=== PATIENT | male | born 1960 | race Caucasian/White ===

== ENCOUNTER 2017-11-14 08:05 | Inpatient (IN) | payer OTHER ==
[~2017-11-14] VITALS: Ht 180.3 cm; Wt 133.8 kg
[~2017-11-14 08:05] MED LIST: EXEN10PE4 SQ; HYT1 PO; LINA5TAB2 PO; PRAV20TA PO; TERB12CR3 TP; TOPXL100 PO; TRAM50TA92 PO; [UNRECOGNIZED DRUG - CODE] PO
[2017-11-14 08:11] VITALS: BP_SYST 139
[2017-11-14] MEDS ORDERED: NACL 0.9% 1,000 ML IV ONE (08:24)
[2017-11-14] MEDS ORDERED: KETOROLAC TROMETHAMINE 30 MG VIAL IVP ONE (08:30)
[2017-11-14 08:57] LABS: CALCIUM 8.8 mg/dL (8.4-11.0); CREATININE 1.49 mg/dL (0.55-1.30); POTASSIUM 3.8 mmol/L (3.5-5.1)
[2017-11-14 09:03] LABS: ALBUMIN 3.8 g/dL (3.4-4.8)
[2017-11-14 09:33] LABS: MONOCYTES # (AUTO) 0.4 K/uL (0.0-1.0)
[2017-11-14 09:36] LABS: EOSINOPHILS # (AUTO) 0.3 K/uL (0.0-0.4); MEAN CORPUSCULAR HGB CONC 34 % (32-36); NEUTROPHILS # (AUTO) 5.1 K/uL (1.8-7.7)
[2017-11-14 09:42] LABS: BASOPHILS % (AUTO) 0.2 % (0.0-2.0); EOSINOPHILS % (AUTO) 3.9 % (0.0-4.0); HEMOGLOBIN 14.7 g/dL (14.0-18.0); LYMPHOCYTES # (AUTO) 1.1 K/uL (1.0-5.5); LYMPHOCYTES % (AUTO) 16.4 % (20.5-51.5); MEAN CORPUSCULAR HEMOGLOBIN 28 pg (27-31); MEAN CORPUSCULAR VOLUME 83 fL (79.0-98.0); MONOCYTES % (AUTO) 6.1 % (1.7-9.3); NEUTROPHILS % (AUTO) 73.4 % (40.0-70.0); PLATELET COUNT (AUTO) 154 K/uL (130-430); RED BLOOD CELL COUNT(AUTO) 5.32 MIL/uL (4.2-6.2); RED CELL DISTRIBUTION WIDTH 14.6 % (9.0-15.0); WHITE BLOOD COUNT (AUTO) 6.9 K/uL (4.8-10.8)
[2017-11-14 11:41] VITALS: BP_SYST 145
[2017-11-14 12:00] VITALS: BP_SYST 135
[2017-11-14] MEDS ORDERED: EXENATIDE SQ SCH (13:30)
[2017-11-14] MEDS ORDERED: traMADol HCL HCL 50 MG TABLET (ULTRAM) PO PRN (13:30)
[2017-11-14] MEDS ORDERED: DEXTROSE 50% JECT 50 ML DISP.SYRIN IVP PRN ×2 (13:45)
[2017-11-14] MEDS ORDERED: LORazepam 2 MG/ML VIAL IVP PRN (13:45)
[2017-11-14] MEDS ORDERED: ONDANSETRON HCL 4 MG/2 ML VIAL IVP PRN (13:45)
[2017-11-14] MEDS ORDERED: MORPHINE 2 MG/ML INJ. SYRINGE IVP PRN (13:45)
[2017-11-14] MEDS: MORPHINE 4 MG/ML INJ. SYRINGE IVP PRN (14:37)
[2017-11-14] MEDS: D5/0.45 NS 1,000 ML IV SCH ×2 (14:38→22:38)
[2017-11-14 16:00] VITALS: BP_SYST 135
[2017-11-14 20:00] VITALS: BP_SYST 135
[2017-11-14] MEDS: TERBINAFINE HCL 1%, 24 GM antifungal CREAM TP SCH (22:39)
[2017-11-14] MEDS: TERAZOSIN HCL 1 MG CAPSULE (HYTRIN) PO SCH (22:40)
[2017-11-15 00:27] VITALS: BP_SYST 122; BP_SYST 151
[2017-11-15 03:39] LABS: BILIRUBIN,URINE 3+ (NEGATIVE); BLOOD, URINE NEGATIVE (NEGATIVE); CLARITY/URINE CLEAR (CLEAR); COLOR,URINE YELLOW (YELLOW); GLUCOSE,URINE 3+ (NEGATIVE); KETONES,URINE TRACE (NEGATIVE); LEUKOCYTE ESTERASE ,URINE NEGATIVE (NEGATIVE); NITRITE, URINE NEGATIVE (NEGATIVE); PH,URINE 5.5 (5.0-8.0); PROTEIN URINE 2+ (NEGATIVE)
[2017-11-15 04:06] LABS: BACTERIA,URINE MODERATE /HPF (None Seen); FINE GRANULAR CASTS,URINE 0-10 /LPF (None Seen); RBC,URINE 0-3 /HPF (0-3); WBC,URINE 0-3 /HPF (0-3)
[2017-11-15 06:43] LABS: BASOPHILS % (AUTO) 0.3 % (0.0-2.0); EOSINOPHILS # (AUTO) 0.3 K/uL (0.0-0.4); EOSINOPHILS % (AUTO) 4.4 % (0.0-4.0); HEMATOCRIT 43.1 % (36-54); HEMOGLOBIN 14.3 g/dL (14.0-18.0); LYMPHOCYTES # (AUTO) 0.9 K/uL (1.0-5.5); LYMPHOCYTES % (AUTO) 16.2 % (20.5-51.5); MEAN CORPUSCULAR HEMOGLOBIN 27 pg (27-31); MEAN CORPUSCULAR HGB CONC 33 % (32-36); MEAN CORPUSCULAR VOLUME 83 fL (79.0-98.0); MONOCYTES # (AUTO) 0.4 K/uL (0.0-1.0); MONOCYTES % (AUTO) 6.4 % (1.7-9.3); NEUTROPHILS # (AUTO) 4.1 K/uL (1.8-7.7); NEUTROPHILS % (AUTO) 72.7 % (40.0-70.0); PLATELET COUNT (AUTO) 143 K/uL (130-430); RED BLOOD CELL COUNT(AUTO) 5.21 MIL/uL (4.2-6.2); RED CELL DISTRIBUTION WIDTH 14.3 % (9.0-15.0); WHITE BLOOD COUNT (AUTO) 5.7 K/uL (4.8-10.8)
[2017-11-15 07:03] LABS: ALBUMIN 3.2 g/dL (3.4-4.8); CALCIUM 8.4 mg/dL (8.4-11.0); CREATININE 1.34 mg/dL (0.55-1.30); PHOSPHORUS 3.5 mg/dL (2.7-4.5); POTASSIUM 3.8 mmol/L (3.5-5.1); TOTAL BILIRUBIN 6.2 mg/dL (0.0-1.0)
[2017-11-15 07:22] LABS: INR 0.9 (0.80-1.20); PROTHROMBIN TIME 9.6 SECS (9.5-12.5)
[2017-11-15] MEDS ORDERED: IOHEXOL 50 ML IV ONE (07:39)
[2017-11-15 08:00] VITALS: BP_SYST 125
[2017-11-15] MEDS ORDERED: INDOMETHACIN 50 MG SUPP.RECT RC ONE (08:00)
[2017-11-15] MEDS ORDERED: NON-FORMULARY MEDICATION (Amlodipine Besylate/Benazepril (Amlodipine-Benazepril 5-40 Mg) 1 PO SCH (09:00)
[2017-11-15] MEDS: TERBINAFINE HCL 1%, 24 GM antifungal CREAM TP SCH ×2 (09:00→20:34)
[2017-11-15] MEDS ORDERED: SUCCINYLCHOLINE CHLORIDE 20 MG/ML(QUELICIN) ONE (09:37)
[2017-11-15] MEDS ORDERED: ONDANSETRON HCL 4 MG/2 ML VIAL ONE ×2 (09:37→10:23)
[2017-11-15] MEDS ORDERED: SEVOFLURANE 15 MIN GAS INH ONE (09:37)
[2017-11-15] MEDS ORDERED: LIDOCAINE 1% 10 MG/ML, 20 ML MDV ONE (09:37)
[2017-11-15] MEDS ORDERED: LR 1,000 ML IV.SOLN IV ONE (09:37)
[2017-11-15] MEDS ORDERED: KETOROLAC TROMETHAMINE 30 MG VIAL ONE (09:37)
[2017-11-15] MEDS ORDERED: DEXAMETHASONE SOD PHOSPHATE 4 MG/ML VIAL ONE (09:37)
[2017-11-15] MEDS ORDERED: fentaNYL CITRATE/PF 100 MCG/2 ML AMP ONE (09:37)
[2017-11-15] MEDS ORDERED: MIDAZOLAM HCL 5 MG/ML VIAL (VERSED) IV ONE (09:37)
[2017-11-15] MEDS ORDERED: ONDANSETRON HCL 4 MG/2 ML VIAL IVP ONE (09:45)
[2017-11-15] MEDS ORDERED: NALOXONE HCL 0.4 MG/ML AMP (NARCAN) IVP ONE (09:45)
[2017-11-15] MEDS ORDERED: HYDROmorphone 1 MG INJ. 1 MG/ML AMPUL IVP PRN (09:45)
[2017-11-15] MEDS ORDERED: MIDAZOLAM HCL 5 MG/5 ML VIAL IVP PRN (09:45)
[2017-11-15] MEDS ORDERED: KETOROLAC TROMETHAMINE 30 MG VIAL IM PRN (09:45)
[2017-11-15] MEDS ORDERED: MEPERIDINE HCL/PF 25 MG/ML DISP.SYRIN IVP PRN (09:45)
[2017-11-15] MEDS ORDERED: fentaNYL CITRATE/PF 100 MCG/2 ML AMP IVP PRN (09:45)
[2017-11-15 10:52] VITALS: BP_SYST 142
[2017-11-15] MEDS: LR 1,000 ML IV SCH (11:00)
[2017-11-15 12:17] LABS: CHLORIDE,URINE RANDOM 59 mmol/L (55-125)
[2017-11-15 12:26] VITALS: BP_SYST 149
[2017-11-15 13:43] LABS: URINE SODIUM, RANDOM 50 mmol/L (40-220)
[2017-11-15] MEDS ORDERED: IOHEXOL 100 ML IV ONE (15:10)
[2017-11-15] MEDS: INSULIN ASPART 100 UNITS/ML, 10 ML VIAL (NovoLOG) SUBCUT PRN ×2 (17:42→20:36)
[2017-11-15] MEDS: amLODIPine BESYLATE 5 MG TABLET PO SCH (18:00)
[2017-11-15] MEDS: BENAZEPRIL HCL 20 MG TABLET (LOTENSIN) PO SCH (18:00)
[2017-11-15] MEDS: METOPROLOL SUCCINATE 50 MG TAB.SR.24H (TOPROL XL) PO SCH (18:01)
[2017-11-15 20:00] VITALS: BP_SYST 142
[2017-11-15] MEDS: TERAZOSIN HCL 1 MG CAPSULE (HYTRIN) PO SCH (20:33)
[2017-11-15] MEDS: SIMVASTATIN 10 MG TABLET PO SCH (20:33)
[2017-11-16 00:14] VITALS: BP_SYST 119
[2017-11-16 08:00] VITALS: BP_SYST 132
[2017-11-16 10:04] LABS: BASOPHILS % (AUTO) 0.3 % (0.0-2.0); EOSINOPHILS # (AUTO) 0.3 K/uL (0.0-0.4); EOSINOPHILS % (AUTO) 3.6 % (0.0-4.0); HEMATOCRIT 38.8 % (36-54); HEMOGLOBIN 13.2 g/dL (14.0-18.0); LYMPHOCYTES # (AUTO) 0.7 K/uL (1.0-5.5); LYMPHOCYTES % (AUTO) 9.3 % (20.5-51.5); MEAN CORPUSCULAR HEMOGLOBIN 28 pg (27-31); MEAN CORPUSCULAR HGB CONC 34 % (32-36); MEAN CORPUSCULAR VOLUME 82 fL (79.0-98.0); MONOCYTES # (AUTO) 0.5 K/uL (0.0-1.0); MONOCYTES % (AUTO) 6.7 % (1.7-9.3); NEUTROPHILS # (AUTO) 5.7 K/uL (1.8-7.7); NEUTROPHILS % (AUTO) 80.1 % (40.0-70.0); PLATELET COUNT (AUTO) 134 K/uL (130-430); RED BLOOD CELL COUNT(AUTO) 4.72 MIL/uL (4.2-6.2); RED CELL DISTRIBUTION WIDTH 14.7 % (9.0-15.0); WHITE BLOOD COUNT (AUTO) 7.2 K/uL (4.8-10.8)
[2017-11-16] MEDS: BENAZEPRIL HCL 20 MG TABLET (LOTENSIN) PO SCH (10:04)
[2017-11-16] MEDS: amLODIPine BESYLATE 5 MG TABLET PO SCH (10:05)
[2017-11-16 10:06] LABS: ALBUMIN 2.9 g/dL (3.4-4.8); CALCIUM 8.1 mg/dL (8.4-11.0); CREATININE 1.26 mg/dL (0.55-1.30); PHOSPHORUS 2.5 mg/dL (2.7-4.5); POTASSIUM 3.8 mmol/L (3.5-5.1); TOTAL BILIRUBIN 1.7 mg/dL (0.0-1.0)
[2017-11-16] MEDS: METOPROLOL SUCCINATE 50 MG TAB.SR.24H (TOPROL XL) PO SCH (10:06)
[2017-11-16] MEDS: TERBINAFINE HCL 1%, 24 GM antifungal CREAM TP SCH ×2 (10:07→21:00)
[2017-11-16] MEDS: LR 1,000 ML IV SCH ×2 (10:07→10:30)
[2017-11-16] MEDS: INSULIN ASPART 100 UNITS/ML, 10 ML VIAL (NovoLOG) SUBCUT PRN ×2 (11:58→21:20)
[2017-11-16 12:25] VITALS: BP_SYST 139
[2017-11-16] MEDS: MORPHINE 4 MG/ML INJ. SYRINGE IVP PRN ×2 (14:48→21:11)
[2017-11-16 16:55] VITALS: BP_SYST 133
[2017-11-16] MEDS ORDERED: NA PHOS 15 MM in NS 250 ML IV ONE (17:00)
[2017-11-16 20:00] VITALS: BP_SYST 141
[2017-11-16] MEDS: TERAZOSIN HCL 1 MG CAPSULE (HYTRIN) PO SCH (20:59)
[2017-11-16] MEDS: SIMVASTATIN 10 MG TABLET PO SCH (20:59)
[2017-11-17] MEDS: LR 1,000 ML IV SCH (00:11)
[2017-11-17 00:33] VITALS: BP_SYST 138
[2017-11-17] MEDS: INSULIN ASPART 100 UNITS/ML, 10 ML VIAL (NovoLOG) SUBCUT PRN ×2 (06:14→12:11)
[2017-11-17 07:30] LABS: EOSINOPHILS # (AUTO) 0.4 K/uL (0.0-0.4); MEAN CORPUSCULAR HEMOGLOBIN 27 pg (27-31); MONOCYTES # (AUTO) 0.5 K/uL (0.0-1.0)
[2017-11-17 08:00] VITALS: BP_SYST 158
[2017-11-17 08:24] LABS: BASOPHILS % (AUTO) 0.4 % (0.0-2.0); EOSINOPHILS % (AUTO) 4.6 % (0.0-4.0); HEMATOCRIT 42.9 % (36-54); HEMOGLOBIN 13.8 g/dL (14.0-18.0); LYMPHOCYTES # (AUTO) 1.1 K/uL (1.0-5.5); LYMPHOCYTES % (AUTO) 13.5 % (20.5-51.5); MEAN CORPUSCULAR HGB CONC 32 % (32-36); MEAN CORPUSCULAR VOLUME 83 fL (79.0-98.0); MONOCYTES % (AUTO) 5.9 % (1.7-9.3); NEUTROPHILS # (AUTO) 6.3 K/uL (1.8-7.7); NEUTROPHILS % (AUTO) 75.6 % (40.0-70.0); PLATELET COUNT (AUTO) 142 K/uL (130-430); RED BLOOD CELL COUNT(AUTO) 5.19 MIL/uL (4.2-6.2); RED CELL DISTRIBUTION WIDTH 15.2 % (9.0-15.0); WHITE BLOOD COUNT (AUTO) 8.3 K/uL (4.8-10.8)
[2017-11-17 08:34] LABS: ALBUMIN 3.1 g/dL (3.4-4.8); CALCIUM 8.3 mg/dL (8.4-11.0); CREATININE 1.08 mg/dL (0.55-1.30); PHOSPHORUS 2.9 mg/dL (2.7-4.5); POTASSIUM 3.8 mmol/L (3.5-5.1); TOTAL BILIRUBIN 1.1 mg/dL (0.0-1.0)
[2017-11-17] MEDS: TERBINAFINE HCL 1%, 24 GM antifungal CREAM TP SCH (09:49)
[2017-11-17] MEDS: METOPROLOL SUCCINATE 50 MG TAB.SR.24H (TOPROL XL) PO SCH (09:50)
[2017-11-17] MEDS: BENAZEPRIL HCL 20 MG TABLET (LOTENSIN) PO SCH (09:50)
[2017-11-17] MEDS: amLODIPine BESYLATE 5 MG TABLET PO SCH (09:51)
[2017-11-17 12:20] VITALS: BP_SYST 148
[2017-11-17 16:54] VITALS: BP_SYST 147
== END 2017-11-17 17:27 | disposition home or self-care (01) | DRG 444 ==
LOC: SED 08:05 → SMU 11:22
PROVIDERS: ADMIT Preventive Medicine Preventive Medicine/Occupational Environmental Medicine; ATTEND Preventive Medicine Preventive Medicine/Occupational Environmental Medicine
PROC: 0F7D8DZ Dilation of Pancreatic Duct with Intraluminal Device, Via Natural or Artificial Opening Endoscopic (ICD-10-PCS; 2017-11-15)
PROC: BF101ZZ Fluoroscopy of Bile Ducts using Low Osmolar Contrast (ICD-10-PCS; 2017-11-15)
PROC: 0FC98ZZ Extirpation of Matter from Common Bile Duct, Via Natural or Artificial Opening Endoscopic (ICD-10-PCS; principal; 2017-11-15 08:30)
DX: K80.51 Calculus of bile duct without cholangitis or cholecystitis with obstruction (principal); E43 Unspecified severe protein-calorie malnutrition; N17.9 Acute kidney failure, unspecified; Z68.41 Body mass index [BMI] 40.0-44.9, adult; I25.10 Atherosclerotic heart disease of native coronary artery without angina pectoris; I12.9 Hypertensive chronic kidney disease with stage 1 through stage 4 chronic kidney disease, or unspecified chronic kidney disease; N18.9 Chronic kidney disease, unspecified; E11.22 Type 2 diabetes mellitus with diabetic chronic kidney disease; E11.65 Type 2 diabetes mellitus with hyperglycemia; Z90.49 Acquired absence of other specified parts of digestive tract; Z79.899 Other long term (current) drug therapy; I25.2 Old myocardial infarction; Z79.84 Long term (current) use of oral hypoglycemic drugs; N40.0 Benign prostatic hyperplasia without lower urinary tract symptoms; E78.5 Hyperlipidemia, unspecified; G89.29 Other chronic pain; E83.52 Hypercalcemia; E83.39 Other disorders of phosphorus metabolism; D64.9 Anemia, unspecified; R79.89 Other specified abnormal findings of blood chemistry; E66.9 Obesity, unspecified; N28.89 Other specified disorders of kidney and ureter; Z93.3 Colostomy status
CPT/HCPCS: 36415; 71045; 74018; 74170-TC; 74181; 74330-TC; 80053; 81000-TC; 82435-TC; 82570-TC; 82962; 83690-TC; 83735-TC; 84100-TC; 84302-TC; 85025; 85610-TC; 87081; 93005; 96361; 96374; 99285; C1769; J0330; J1100; J1885; J2001; J2250; J2270; J2405; J3010; J7030; J7050; J7120; Q9967

== ENCOUNTER 2019-02-18 13:56 | Emergency (ER) | payer OTHER ==
[~2019-02-18] VITALS: Ht 182.9 cm; Wt 127.0 kg
[~2019-02-18 13:56] MED LIST changes: +AMLO1CAP PO; -[UNRECOGNIZED DRUG - CODE] PO
[2019-02-18 13:59] VITALS: BP_SYST 146
[2019-02-18] MEDS ORDERED: MORPHINE 4 MG/ML INJ. SYRINGE IVP ONE (14:30)
[2019-02-18 15:58] VITALS: BP_SYST 119
== END 2019-02-18 15:58 | disposition home or self-care (01) ==
LOC: SED 13:56
DX: S39.012A Strain of muscle, fascia and tendon of lower back, initial encounter (principal); R10.84 Generalized abdominal pain; I10 Essential (primary) hypertension; E11.9 Type 2 diabetes mellitus without complications; F12.90 Cannabis use, unspecified, uncomplicated; Z90.49 Acquired absence of other specified parts of digestive tract; Z79.899 Other long term (current) drug therapy; V49.40XA Driver injured in collision with unspecified motor vehicles in traffic accident, initial encounter; Y93.89 Activity, other specified; Y92.89 Other specified places as the place of occurrence of the external cause; Y99.8 Other external cause status
CPT/HCPCS: 72131; 74176; 96374; 99284; J2270

== ENCOUNTER 2019-03-28 10:52 | Emergency (ER) | payer OTHER ==
[~2019-03-28] VITALS: Ht 182.9 cm; Wt 127.0 kg
[2019-03-28 10:52] VITALS: BP_SYST 179
--- NOTE | 2019-03-28 10:52 | NUR ---
BROUGHT BACK TO BED #8 AND TRIAGED. REPORT GIVEN TO YARY
--- NOTE | 2019-03-28 11:10 | NUR ---
TAKEN TO RADIOLOGY VIA AMBULATORY FOR TESTING.
--- NOTE | 2019-03-28 11:15 | NUR ---
Patient presented to ER C/O right hand pain. Patient A&Ox4, ambulatory to ER, skin pink and warm, pain 8/10, right lateral hand swelling. Patient states he FOOSH right x1 weekago.
--- NOTE | 2019-03-28 11:25 | NUR ---
RETURNED FROM RADIOLOGY AND PLACED BACK TO BED #8
--- NOTE | 2019-03-28 12:05 | NUR ---
DR REAL AT BEDSIDE FOR EVALUATION
[2019-03-28] MEDS ORDERED: KETOROLAC TROMETHAMINE 60 MG/2 ML VIAL IM ONE (12:15)
--- NOTE | 2019-03-28 12:15 | NUR ---
right wrist splint applies. Pt tolerated well. Medicated the pt w/ Toradol per MD order.
[2019-03-28 12:23] VITALS: BP_SYST 179
--- NOTE | 2019-03-28 12:23 | NUR ---
Patient given written and verbal discharge instructions and verbalizes understanding. ER MD discussed with patient the results and treatment provided. Patient in stable condition. ID arm band removed. Rx of Naprosyn given. Patient educated on pain management and to follow up with PMD. Pain Scale 3/10.Opportunity for questions provided and answered. Medication side effect fact sheet provided.
== END 2019-03-28 12:23 | disposition home or self-care (01) ==
LOC: SED 10:52
DX: S63.501A Unspecified sprain of right wrist, initial encounter (principal); S63.91XA Sprain of unspecified part of right wrist and hand, initial encounter; I10 Essential (primary) hypertension; E11.9 Type 2 diabetes mellitus without complications; Z79.899 Other long term (current) drug therapy; W18.39XA Other fall on same level, initial encounter; Y93.89 Activity, other specified; Y92.89 Other specified places as the place of occurrence of the external cause; Y99.8 Other external cause status
CPT/HCPCS: 29125; 73110; 73130; 96372; 99283; J1885